=== PATIENT | female | born 1980 | race Caucasian/White ===

== ENCOUNTER 2016-12-13 13:26 | Emergency (ER) | END 2016-12-13 14:20 | disposition left against medical advice (07) | LOC: ER 13:26 | DX: Z53.21 Procedure and treatment not carried out due to patient leaving prior to being seen by health care provider (principal) ==

== ENCOUNTER 2017-08-02 11:12 | Emergency (ER) | payer MEDICARE, MEDICAID ==
--- NOTE | 2017-08-02 12:40 | ER Document Report ---
ED General - General Chief Complaint: Numbness Stated Complaint: WEAKNESS Time Seen by Provider: 08/02/17 12:25 Mode of Arrival: Ambulatory Information source: Patient Notes: 37-year-old female presents with complaints of intermittent episodes of feeling lightheaded over the past week. Patient notes that she feels like her blood sugar was dropping, felt clammy. denies any fevers or chills. TRAVEL OUTSIDE OF THE [place] IN LAST 30 DAYS: No - HPI Onset: Last week Onset/Duration: Intermittent Quality of pain: No pain Severity: Mild Pain Level: Denies Associated symptoms: Weakness, Other - clammy Exacerbated by: Denies Relieved by: Food Similar symptoms previously: Yes Recently seen / treated by doctor: No Past Medical History - Social History Smoking Status: Never Smoker Cigarette use (# per day): No Chew tobacco use (# tins/day): No Smoking Education Provided: No Family History: Reviewed & Not Pertinent Patient has suicidal ideation: No Renal/ Medical History: Denies: Hx Peritoneal Dialysis Review of Systems - Review of Systems Notes: REVIEW OF SYSTEMS: CONSTITUTIONAL : Denies fever, chills, or sweats. Denies recent illness. clammy EENT: Denies eye, ear, throat, or mouth pain or symptoms. Denies nasal or sinus congestion or discharge. Denies throat, tongue, or mouth swelling or difficulty swallowing. CARDIOVASCULAR: Denies chest pain. Denies palpitations or racing or irregular heart beat. Denies ankle edema. RESPIRATORY: Denies cough, cold, or chest congestion. Denies shortness of breath, difficulty breathing, or wheezing. GASTROINTESTINAL: Denies abdominal pain or distention. Denies nausea, vomiting , or diarrhea. Denies blood in vomitus, stools, or per rectum. Denies black, tarry stools. Denies constipation. GENITOURINARY: Denies difficulty urinating, painful urination, burning, frequency, blood in urine, or discharge. FEMALE GENITOURINARY: Denies vaginal bleeding, heavy or abnormal periods, irregular periods. Denies vaginal discharge or odor. MUSCULOSKELETAL: Denies back or neck pain or stiffness. Denies joint pain or swelling. SKIN: Denies rash, lesions or sores. HEMATOLOGIC : Denies easy bruising or bleeding. LYMPHATIC: Denies swollen, enlarged glands. NEUROLOGICAL: admits to dizziness, tunnel vision, PSYCHIATRIC: Denies anxiety or stress. Denies depression, suicidal ideation, or homicidal ideation. ALL OTHER SYSTEMS REVIEWED AND NEGATIVE. PHYSICAL EXAMINATION: GENERAL: Well-appearing, well-nourished and in no acute distress. HEAD: Atraumatic, normocephalic. EYES: Pupils equal round and reactive to light, extraocular movements intact, conjunctiva are normal. ENT: Nares patent, oropharynx clear without exudates. Moist mucous membranes. NECK: Normal range of motion, supple without lymphadenopathy LUNGS: Breath sounds clear to auscultation bilaterally and equal. No wheezes rales or rhonchi. HEART: Regular rate and rhythm without murmurs ABDOMEN: Soft, nontender, nondistended abdomen. No guarding, no rebound. No masses appreciated. Female : deferred Musculoskeletal: Normal range of motion, no pitting or edema. No cyanosis. NEUROLOGICAL: Cranial nerves grossly intact. Normal speech, normal gait. Normal sensory, motor exams PSYCH: Normal mood, normal affect. SKIN: Warm, Dry, normal turgor, no rashes or lesions noted. Dictation was performed using [employer] voice recognition software Physical Exam - Vital signs Vitals: Temp Pulse Resp BP Pulse Ox 97.9 F 74 18 139/98 H 97 08/02/17 11:14 08/02/17 11:14 08/02/17 11:14 08/02/17 11:14 08/02/17 11:14 Course - Re-evaluation Re-evalutation: 08/02/17 13:42 Patient lab work notes no significant abnormality, patient did eat and her symptoms resolved afterwards and her blood sugars 87, believe this may have been the cause of her symptoms otherwise she looks well is in no distress and has been encouraged to eat at least a little bit at a time After performing a Medical Screening Examination, I estimate there is LOW risk for INTRACRANIAL HEMORRHAGE, ISCHEMIC CVA, MALIGNANT DYSRHYTHMIA, ACUTE CORONARY SYNDROME, MENINGITIS, PULMONARY EMBOLISM, or SEPSIS thus I consider the discharge disposition reasonable. I have reevaluated this patient multiple times and no significant life threatening changes are noted. The patient and I have discussed the diagnosis and risks, and we agree with discharging home with close follow-up with the understanding that symptoms and presentations can change. We also discussed returning to the Emergency Department immediately if new or worsening symptoms occur. We have discussed the symptoms which are most concerning (e.g., changing or worsening pain, weakness, vomiting, fever) that necessitate immediate return. - Vital Signs Vital signs: Temp Pulse Resp BP Pulse Ox 97.9 F 74 18 139/98 H 97 08/02/17 11:14 08/02/17 11:14 08/02/17 11:14 08/02/17 11:14 08/02/17 11:14 - Laboratory Result Diagrams: 08/02/17 12:55 08/02/17 12:55 Discharge - Discharge Clinical Impression: Hypoglycemia, Weakness Condition: Stable Disposition: HOME, SELF-CARE Instructions: Hypoglycemia ([facility]) Additional Instructions: Follow up with your physician tomorrow for further care or return to the ED IMMEDIATELY if symptoms worsen or new concerns occur. If you cannot afford to follow up with your primary care physician a list of low cost clinics have been provided at the end of your discharge papers as well.
[2017-08-02 13:08] LABS: ABSOLUTE BASOPHILS # (AUTO) 0.1 10^3/uL (0.0-0.2); ABSOLUTE EOSINOPHILS # (AUTO) 0.2 10^3/uL (0.0-0.6); ABSOLUTE LYMPHOCYTES (AUTO) 2.4 10^3/uL (0.5-4.7); ABSOLUTE MONOCYTES (AUTO) 0.6 10^3/uL (0.1-1.4); EOSINOPHILS % (AUTO) 1.8 % (0-6); HEMATOCRIT 41.3 % (36.0-47.0); HEMOGLOBIN 14.3 g/dL (12.0-15.5); HGB HCT DIFFERENCE 1.6; MEAN CORPUSCULAR HEMOGLOBIN 30.5 pg (27.0-33.4); MEAN CORPUSCULAR HGB CONC 34.5 g/dL (32.0-36.0); MEAN CORPUSCULAR VOLUME 88 fl (80-97); MONOCYTES % (AUTO) 6.2 % (3-13); RED BLOOD COUNT 4.67 10^6/uL (3.72-5.28); RED CELL DISTRIBUTION WIDTH 12.5 % (11.5-14.0); WHITE BLOOD COUNT 10.3 10^3/uL (4.0-10.5)
[2017-08-02 13:25] LABS: ALANINE AMINOTRANSFERASE 35 U/L (9-52); ALBUMIN 4.4 g/dL (3.5-5.0); ALKALINE PHOSPHATASE 96 U/L (38-126); ANION GAP 10 (5-19); ASPARTATE AMINO TRANSFERASE 18 U/L (14-36); BILIRUBIN,DIRECT 0.3 mg/dL (0.0-0.4); BILIRUBIN,TOTAL 0.4 mg/dL (0.2-1.3); BLOOD UREA NITROGEN 8 mg/dL (7-20); CARBON DIOXIDE 27 mmol/L (22-30); CHLORIDE 105 mmol/L (98-107); CREATININE RESULT 0.66 mg/dL (0.52-1.25); GLUCOSE 87 mg/dL (75-110); POTASSIUM 4.7 mmol/L (3.6-5.0); SODIUM 141.6 mmol/L (137-145); TOTAL PROTEIN 7.2 g/dL (6.3-8.2)
[2017-08-02 13:58] VITALS: BP 140/94
== END 2017-08-02 13:38 | disposition home or self-care (01) ==
LOC: ER 11:12
DX: E16.2 Hypoglycemia, unspecified (principal); R53.1 Weakness; R42 Dizziness and giddiness
CPT/HCPCS: 36415; 80053; 85025; 99284

== ENCOUNTER → 2017-08-12 | Outpatient (CLI) | payer MEDICARE, MEDICAID ==
--- NOTE | 2017-08-12 14:51 | RADIOLOGY REPORT (SQ) ---
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 NUMBER OF VIEWS: Three views. TECHNIQUE: AP, lateral, and oblique radiographic images acquired of the left ankle. LIMITATIONS: None. FINDINGS: MINERALIZATION: Normal. BONES: No acute fracture or dislocation. No worrisome bone lesions. JOINTS: No effusions. SOFT TISSUES: No soft tissue swelling. No foreign body. OTHER: No other significant finding. IMPRESSION: NEGATIVE STUDY OF THE LEFT ANKLE. NO RADIOGRAPHIC EVIDENCE OF ACUTE INJURY. TECHNICAL DOCUMENTATION: JOB ID: [id number] [employer]- All Rights Reserved
--- NOTE | 2017-08-12 14:52 | RADIOLOGY REPORT (SQ) ---
EXAM DESCRIPTION: FOOT LEFT COMPLETE COMPLETED DATE/TIME: 08/12/2017 2:29 pm REASON FOR STUDY: PLANTAR FASCIAL FIBROMATOSIS,PAIN IN LEFT FOOT M72.2 PLANTAR FASCIAL FIBROMATOSIS M79.672 PAIN IN LEFT FOOT COMPARISON: None. NUMBER OF VIEWS: Three views. TECHNIQUE: AP, lateral and oblique radiographic images acquired of the left foot. LIMITATIONS: None. FINDINGS: MINERALIZATION: Normal. BONES: No acute fracture or dislocation. No worrisome bone lesions. JOINTS: No effusions. SOFT TISSUES: No soft tissue swelling. No foreign body. OTHER: No other significant finding. IMPRESSION: NEGATIVE STUDY OF THE LEFT FOOT. NO RADIOGRAPHIC EVIDENCE OF ACUTE INJURY. TECHNICAL DOCUMENTATION: JOB ID: [id number] [employer]- All Rights Reserved
== END ==
LOC: OD 14:04
PROVIDERS: ATTEND Family Medicine Geriatric Medicine
DX: M72.2 Plantar fascial fibromatosis (principal); M79.672 Pain in left foot

== ENCOUNTER → 2017-09-28 | Outpatient (CLI) | payer MEDICARE, MEDICAID ==
--- NOTE | 2017-09-28 17:44 | WOMENS IMAGING REPORT ---
EXAM DESCRIPTION: 3D SCREENING MAMMO BILAT COMPLETED DATE/TIME: 09/28/2017 3:42 pm REASON FOR STUDY: ROUTINE SCREENING; Z12.31 Z12.31 ENCNTR SCREEN MAMMOGRAM FOR MALIGNANT NEOPLASM O F RISSA COMPARISON: None. TECHNIQUE: Standard craniocaudal and mediolateral oblique views of each breast recorded using digita l acquisition and breast tomosynthesis. Additional "push-back craniocaudal and mediolateral oblique images acquired. LIMITATIONS: None. FINDINGS: IMPLANTS: Bilateral subpectoral implants. Findings present which are benign by mammographic criteria. No suspicious masses, calcifications or a rchitectural distortion. Read with the assistance of CAD. .[facility] - R2 Cenova Version 1.3 .[facility] - R2 Cenova Version 1.3 .[facility] - R2 Cenova Version 2.4 .[facility] - R2 Cenova Version 2.4 .[facility] - R2 Driver License Examiner Version 9.2 Benign mammographic findings may include one or more of the following: Smooth masses, popcorn/rim/co arse calcifications, asymmetries, post-procedure changes, and lesions with long-standing stability. IMPRESSION: BENIGN MAMMOGRAPHIC FINDINGS. BIRADS 2 BREAST DENSITY: c. The breasts are heterogeneously dense, which may obscure small masses. BIRAD: 2 BENIGN FINDING(S) RECOMMENDATION: ROUTINE SCREENING Please continue yearly bilateral screening tomosynthesis in September 2018. COMMENT: The patient has been notified of the results by letter per SA requirements. Additional no tification policies are in place for contacting patient with suspicious or incomplete findings. Quality ID #[id number]: The [employer] recommends an annual screening mammogram for women aged 40 years or over. This facility utilizes a reminder system to ensure that all patients receive reminder letters, and/or direct phone calls for appointments. This includes reminders for routine scr eening mammograms, diagnostic mammograms, or other Breast Imaging Interventions when appropriate. Th is patient will be placed in the appropriate reminder system. The [employer] (ACR) has developed recommendations for screening MRI of the breast s in certain patient populations, to be used in conjunction with mammography. Breast MRI surveillanc e may be appropriate for women with more than 20% lifetime risk of developing breast cancer as deter mined by genetic testing, significant family history of the disease, or history of mantle radiation f or Hodgkins Disease. ACR Practice Guidelines 2008. DBT Technology DBT is a type of tomographic mammography. With conventional mammography, overlapping breast tissue ma y make lesions difficult to detect, even with good compression. DBT uses an x-ray tube that rotates a round the breast, taking images at different angles. These images are then combined to create thin sl ices of the breast that the radiologist can view as a 3D reconstruction. The [place] [employer] unit can perform full-field digital mammograms (2D imaging); or DBT (3D imaging); or both, in a combination mode that quickly performs both the mammogram and the tomosynthesis scan while the breast is still compressed. PQRS 6045F: Fluoroscopic imaging is not utilized for breast tomosynthesis. TECHNICAL DOCUMENTATION: FINDING NUMBER: (1) ASSESSMENT: (1) JOB ID: [id number] [employer]- All Rights Reserved
== END ==
LOC: WI 15:07
PROVIDERS: ATTEND Obstetrics & Gynecology Gynecology
DX: Z12.31 Encounter for screening mammogram for malignant neoplasm of breast (principal)
CPT/HCPCS: 77063; G0202; 77067

== ENCOUNTER 2017-10-25 16:39 | Emergency (ER) | payer MEDICARE, MEDICAID ==
[2017-10-25] MEDS ORDERED: DIAZEPAM 5 MG TABLET PO ONE (17:15)
[2017-10-25 17:49] VITALS: BP 129/100
--- NOTE | 2017-10-25 17:51 | ER Document Report ---
ED General - General Chief Complaint: Breathing Difficulty Stated Complaint: LIGHTHEADED,SHORT OF BREATH Time Seen by Provider: 10/25/17 17:15 Mode of Arrival: Ambulatory Information source: Patient Notes: 37 yr old female hx of anxiety panic attacks persents with complaints of feeling that she is drowning, tinging in her hands and lips, hyperventilating and shaking. pt notes 1 similar panic attack i nthe past TRAVEL OUTSIDE OF THE [place] IN LAST 30 DAYS: No - HPI Onset: Just prior to arrival Onset/Duration: Sudden Quality of pain: No pain Severity: Moderate Pain Level: Denies Associated symptoms: Other Exacerbated by: Denies Relieved by: Denies Similar symptoms previously: Yes Recently seen / treated by doctor: Yes - Related Data Allergies/Adverse Reactions: bupropion [From Wellbutrin] Allergy (Verified 10/25/17 16:43) Past Medical History - Social History Smoking Status: Current Every Day Smoker Cigarette use (# per day): Yes Chew tobacco use (# tins/day): No Smoking Education Provided: No Frequency of alcohol use: None Drug Abuse: None Family History: Reviewed & Not Pertinent Patient has suicidal ideation: No Patient has homicidal ideation: No Renal/ Medical History: Denies: Hx Peritoneal Dialysis Review of Systems - Review of Systems Notes: REVIEW OF SYSTEMS: CONSTITUTIONAL : Denies fever, chills, or sweats. Denies recent illness. EENT: Denies eye, ear, throat, or mouth pain or symptoms. Denies nasal or sinus congestion or discharge. Denies throat, tongue, or mouth swelling or difficulty swallowing. CARDIOVASCULAR: Denies chest pain. Denies palpitations or racing or irregular heart beat. Denies ankle edema. RESPIRATORY: Admits to shortness of breath like she is drowning GASTROINTESTINAL: Denies abdominal pain or distention. Denies nausea, vomiting , or diarrhea. Denies blood in vomitus, stools, or per rectum. Denies black, tarry stools. Denies constipation. GENITOURINARY: Denies difficulty urinating, painful urination, burning, frequency, blood in urine, or discharge. FEMALE GENITOURINARY: Denies vaginal bleeding, heavy or abnormal periods, irregular periods. Denies vaginal discharge or odor. MUSCULOSKELETAL: Denies back or neck pain or stiffness. Denies joint pain or swelling. SKIN: Denies rash, lesions or sores. HEMATOLOGIC : Denies easy bruising or bleeding. LYMPHATIC: Denies swollen, enlarged glands. NEUROLOGICAL: Admits tingling PSYCHIATRIC: Admits to stress ALL OTHER SYSTEMS REVIEWED AND NEGATIVE. PHYSICAL EXAMINATION: GENERAL: Well-appearing, well-nourished and in no acute distress. HEAD: Atraumatic, normocephalic. EYES: Pupils equal round and reactive to light, extraocular movements intact, conjunctiva are normal. ENT: Nares patent, oropharynx clear without exudates. Moist mucous membranes. NECK: Normal range of motion, supple without lymphadenopathy LUNGS: Breath sounds clear to auscultation bilaterally and equal. No wheezes rales or rhonchi. HEART: Regular rate and rhythm without murmurs ABDOMEN: Soft, nontender, nondistended abdomen. No guarding, no rebound. No masses appreciated. Female : deferred Musculoskeletal: Normal range of motion, no pitting or edema. No cyanosis. NEUROLOGICAL: Cranial nerves grossly intact. Normal speech, normal gait. Normal sensory, motor exams PSYCH: Extremely anxious SKIN: Warm, Dry, normal turgor, no rashes or lesions noted. Dictation was performed using [employer] voice recognition software Physical Exam - Vital signs Vitals: Temp Pulse Resp BP Pulse Ox 98.5 F 71 16 138/101 H 100 10/25/17 16:51 10/25/17 16:51 10/25/17 16:51 10/25/17 16:51 10/25/17 16:51 Course - Re-evaluation Re-evalutation: Patient's presentation is consistent with a panic attack 10/25/17 17:50 Patient notes significant improvement of sensation with Valium, she no longer has any shortness of breath tingling sensations or shakiness. She wishes to be discharged at this time 10/25/17 18:37 After performing a Medical Screening Examination, I estimate there is LOW risk for ACUTE CORONARY SYNDROME, PULMONARY EMBOLI, RESPIRATORY FAILURE, SEPSIS OR MENINGITIS, thus I consider the discharge disposition reasonable. I have reevaluated this patient multiple times and no significant life threatening changes are noted. The patient and I have discussed the diagnosis and risks, and we agree with discharging home with close follow-up. We also discussed returning to the Emergency Department immediately if new or worsening symptoms occur. We have discussed the symptoms which are most concerning (e.g., changing or worsening pain, trouble swallowing or breathing, neck stiffness, fever) that necessitate immediate return. - Vital Signs Vital signs: Temp Pulse Resp BP Pulse Ox 98.5 F 66 18 129/100 H 98 10/25/17 16:51 10/25/17 17:48 10/25/17 17:49 10/25/17 17:48 10/25/17 17:48 Discharge - Discharge Clinical Impression: Panic attack as reaction to stress Condition: Stable Disposition: HOME, SELF-CARE Instructions: Panic Attack ([facility]) Additional Instructions: Please follow-up with your psychiatrist or return immediately if there are any other concerns Referrals: ORA BHANDARI FNP [Primary Care Provider] - Follow up as needed
== END 2017-10-25 17:55 | disposition home or self-care (01) ==
LOC: ER 16:39
DX: F41.0 Panic disorder [episodic paroxysmal anxiety] (principal); R06.00 Dyspnea, unspecified; F17.210 Nicotine dependence, cigarettes, uncomplicated
CPT/HCPCS: 99284; A9270

== ENCOUNTER 2018-03-18 | Emergency (ER) | payer MEDICARE, OTHER, MEDICAID | END 2018-03-18 14:12 | disposition left against medical advice (07) | DX: Z53.21 Procedure and treatment not carried out due to patient leaving prior to being seen by health care provider (principal) ==

== ENCOUNTER 2018-03-19 10:32 | Emergency (ER) | payer MEDICARE, MEDICAID ==
[2018-03-19] MEDS ORDERED: ASPIRIN 81 MG TABLET, CHEWABLE PO ONE (11:06)
--- NOTE | 2018-03-19 11:10 | ER Document Report ---
ED Medical Screen (RME) - General Chief Complaint: Chest Tightness Stated Complaint: CHEST TIGHTNESS,BLURRED VISION Time Seen by Provider: 03/19/18 10:54 Notes: 38-year-old female presents emergency department complaining of chest pain and shortness of breath starting about an hour ago associated with left arm tingling starting 2 weeks ago. Patient admits she has a history of anxiety attacks but states this does not feel at all same. Previously she felt like she could not get a deep breath and today she feels like somebody standing on her chest. Patient also states that yesterday she was seen in urgent care for history of intermittent blurred vision, intermittent vertigo described as the world spinning around her and intermittent dizziness going on for the past several days up to 2 weeks. States that yesterday she was told to come to the emergency department to have a CAT scan done. Denies any focal weakness. Significant family history includes grandmother and grandfather with a heart attack. No heart attacks in first-degree relatives. TRAVEL OUTSIDE OF THE [place] IN LAST 30 DAYS: No - Related Data Allergies/Adverse Reactions: bupropion [From Wellbutrin] Allergy (Verified 03/19/18 11:02) Past Medical History - General Information source: Patient - Social History Cigarette use (# per day): Yes Chew tobacco use (# tins/day): No Frequency of alcohol use: None Drug Abuse: None Family history: CAD - Paternal grandmother and maternal grandfather with heart attacks. Renal/ Medical History: Denies: Hx Peritoneal Dialysis Psychiatric Medical History: Reports: Hx Depression - ANxiety Review of Systems - Review of Systems Constitutional: No symptoms reported Cardiovascular: See HPI Respiratory: See HPI Neurological/Psychological: See HPI Physical Exam - Vital signs Vitals: Temp Pulse Resp BP Pulse Ox 98.4 F 86 20 130/91 H 100 03/19/18 10:45 03/19/18 10:45 03/19/18 10:45 03/19/18 10:45 03/19/18 10:45 Interpretation: Tachycardic - General General appearance: Anxious In distress: Mild - HEENT Head: Normocephalic, Atraumatic - Respiratory Respiratory status: No respiratory distress Chest status: Nontender Breath sounds: Normal Chest palpation: Normal - Cardiovascular Rhythm: Tachycardia Heart sounds: Normal auscultation Murmur: No - Neurological Notes: No facial droop., Extraocular movements intact. Course - Re-evaluation Re-evalutation: 03/19/18 11:09 Doubt cerebellar stroke at this time as her symptoms intermittently resolved and return. Will hold off on CAT scan at this time. Patient agreeable to this plan. - Vital Signs Vital signs: Temp Pulse Resp BP Pulse Ox 98.4 F 86 20 130/91 H 100 03/19/18 10:45 03/19/18 10:45 03/19/18 10:45 03/19/18 10:45 03/19/18 10:45
--- NOTE | 2018-03-19 11:26 | ER Document Report ---
ED General <GEORGIA NOVAK - Last Filed: 03/19/18 13:38> - General Mode of Arrival: Ambulatory Information source: Patient TRAVEL OUTSIDE OF THE [place] IN LAST 30 DAYS: No <MABEL LOZA - Last Filed: 03/19/18 14:23> - General Chief Complaint: Chest Tightness Stated Complaint: CHEST TIGHTNESS,BLURRED VISION Time Seen by Provider: 03/19/18 10:54 Notes: Patient is a 38 year old female that presents to the emergency department today with complaints of vertigo, lightheadedness, and blurred vision. Patient states she has been having these symptoms for quite some time. Patient states that when her symptoms begin they last for approximately 5-10 minutes and she is unsure how often they stay gone. Patient is a poor historian so history is somewhat limited. (MABEL LOZA) - Related Data Allergies/Adverse Reactions: bupropion [From Wellbutrin] Allergy (Verified 03/19/18 11:02) Past Medical History - General Information source: Patient - Social History Smoking Status: Current Every Day Smoker Cigarette use (# per day): Yes Chew tobacco use (# tins/day): No Frequency of alcohol use: None Drug Abuse: None Lives with: Family Family History: Reviewed & Not Pertinent Patient has suicidal ideation: No Patient has homicidal ideation: No Psychiatric Medical History: Reports: Hx Anxiety, Hx Depression Surgical Hx: Negative <MABEL LOZA - Last Filed: 03/19/18 14:23> Review of Systems - Review of Systems Constitutional: No symptoms reported EENT: No symptoms reported Cardiovascular: See HPI, Chest pain, Dizziness, Lightheaded Respiratory: No symptoms reported Gastrointestinal: No symptoms reported Genitourinary: No symptoms reported Female Genitourinary: No symptoms reported Musculoskeletal: No symptoms reported Skin: No symptoms reported Hematologic/Lymphatic: No symptoms reported Neurological/Psychological: No symptoms reported -: Yes All other systems reviewed and negative <MABEL LOZA - Last Filed: 03/19/18 14:23> Physical Exam <GEORGIA NOVAK - Last Filed: 03/19/18 13:38> <MABEL LOZA - Last Filed: 03/19/18 14:23> - Vital signs Vitals: Temp Pulse Resp BP Pulse Ox 98.4 F 86 20 130/91 H 100 03/19/18 10:45 03/19/18 10:45 03/19/18 10:45 03/19/18 10:45 03/19/18 10:45 - Notes Notes: Physical Exam: General: Alert, appears well. HEENT: Normocephalic. Atraumatic. PERRL. Extraocular movements intact. Oropharynx clear. Rapid head movement did not provoke nystagmus or dizziness. Neck: Supple. Non-tender. Respiratory: No respiratory distress. Clear and equal breath sounds bilaterally. Mild left anterior chest wall tenderness with palpation. Cardiovascular: Regular rate and rhythm. Abdominal: Normal Inspection. Non-tender. No distension. Normal Bowel Sounds. Back: Left medial scapular musculature tenderness with palpation. No deformity or step off. Extremities: Moves all four extremities. Upper extremities: Normal inspection. Normal ROM. Lower extremities: Normal inspection. No edema. Normal ROM. Neurological: Normal cognition. AAOx4. Normal speech. Psychological: Anxious Skin: Warm. Dry. Normal color. (MABEL LOZA) Course - Laboratory Result Diagrams: 03/19/18 11:30 03/19/18 11:30 - Diagnostic Test Radiology reviewed: Image reviewed, Reports reviewed - Chest x-ray is unremarkable - EKG Interpretation by Nd EKG shows normal: Sinus rhythm, [place], Intervals, ST-T Waves. abnormal: QRS Complexes - Lateral Q waves similar to an EKG done at the urgent care yesterday. Rate: Normal - 98 Rhythm: NSR <GEORGIA NOVAK - Last Filed: 03/19/18 13:38> - Laboratory Result Diagrams: 03/19/18 11:30 03/19/18 11:30 <MABEL LOZA - Last Filed: 03/19/18 14:23> - Re-evaluation Re-evalutation: 03/19/18 13:38 The sling was applied to the left arm by the PCT. It fits well, provides good support and allows the patient to relax her left shoulder girdle muscles. (GEORGIA NOVAK) - Vital Signs Vital signs: Temp Pulse Resp BP Pulse Ox 98.4 F 86 16 118/81 98 03/19/18 12:58 03/19/18 10:45 03/19/18 12:52 03/19/18 12:52 03/19/18 12:52 - Laboratory Laboratory results interpreted by me: 03/19/18 03/19/18 11:30 11:30 ESR 23 H C-Reactive Protein 12.2 H Discharge <GEORGIA NOVAK - Last Filed: 03/19/18 13:38> <MABEL LOZA - Last Filed: 03/19/18 14:23> - Discharge Clinical Impression: Light-headed feeling, Dizziness, Vertigo, Blurred vision, bilateral, Pain of left scapula Chest pain Qualifiers: Chest pain type: unspecified Qualified Code(s): R07.9 - Chest pain, unspecified Condition: Stable Disposition: HOME, SELF-CARE Additional Instructions: No abnormalities were found in your workup today. No clear explanation for your symptoms of brief episodes of vertigo and blurry vision was discovered. Your left scapular muscle tenderness will probably improve if you try wearing a sling on her left arm to allow the muscles to relax. Get plenty of rest and plenty of sleep. Continue your regular medications. Take Tylenol and ibuprofen for pain as needed. Use the sling on your left arm to allow the muscles in the shoulder girdle region to rest. Follow-up with your primary care provider if not improving next week. Referrals: ANT HINTON NP [Primary Care Provider] - Follow up as needed Scribe Attestation: 03/19/18 11:27 I personally performed the services described in the documentation, reviewed and edited the documentation which was dictated to the scribe in my presence, and it accurately records my words and actions. (GEORGIA NOVAK) Scribe Documentation - Scribe Written by Isai:: Isai Becerra, 03/19/2018, 1423 acting as scribe for :: Hung <MABEL LOZA - Last Filed: 03/19/18 14:23>
[2018-03-19 11:53] LABS: ABSOLUTE EOSINOPHILS # (AUTO) 0.1 10^3/uL (0.0-0.6); ABSOLUTE LYMPHOCYTES (AUTO) 1.9 10^3/uL (0.5-4.7); ABSOLUTE MONOCYTES (AUTO) 0.6 10^3/uL (0.1-1.4); ABSOLUTE NEUT (AUTO) 6.4 10^3/uL (1.7-8.2); BASOPHILS % (AUTO) 0.4 % (0-2); EOSINOPHILS % (AUTO) 1.6 % (0-6); HEMATOCRIT 41.7 % (36.0-47.0); HEMOGLOBIN 14.1 g/dL (12.0-15.5); LYMPHOCYTES % (AUTO) 20.8 % (13-45); MEAN CORPUSCULAR HEMOGLOBIN 30.1 pg (27.0-33.4); MEAN CORPUSCULAR HGB CONC 33.9 g/dL (32.0-36.0); MEAN CORPUSCULAR VOLUME 89 fl (80-97); MONOCYTES % (AUTO) 6.1 % (3-13); PLATELET COUNT 302 10^3/uL (150-450); RED BLOOD COUNT 4.69 10^6/uL (3.72-5.28); SEGMENTED NEUTROPHILS % (AUTO) 71.1 % (42-78); TOTAL CELLS COUNTED % (AUTO) 100 %
--- NOTE | 2018-03-19 11:58 | RADIOLOGY REPORT (SQ) ---
EXAM DESCRIPTION: CHEST SINGLE VIEW COMPLETED DATE/TIME: 03/19/2018 11:49 am REASON FOR STUDY: chest pain, SOB COMPARISON: None. EXAM PARAMETERS: NUMBER OF VIEWS: One view. TECHNIQUE: Single frontal radiographic view of the chest acquired. RADIATION DOSE: NA LIMITATIONS: None. FINDINGS: LUNGS AND PLEURA: No opacities, masses or pneumothorax. No pleural effusion. MEDIASTINUM AND HILAR STRUCTURES: No masses. Contour normal. HEART AND VASCULAR STRUCTURES: Heart normal in size. Normal vasculature. BONES: No acute findings. HARDWARE: None in the chest. OTHER: No other significant finding. IMPRESSION: NO ACUTE RADIOGRAPHIC FINDING IN THE CHEST. TECHNICAL DOCUMENTATION: JOB ID: [id number] [employer]- All Rights Reserved Reading location - IP/workstation name: [email or web address]
[2018-03-19 12:12] LABS: ALANINE AMINOTRANSFERASE 30 U/L (9-52); ALBUMIN 4.5 g/dL (3.5-5.0); ALKALINE PHOSPHATASE 102 U/L (38-126); ANION GAP 12 (5-19); ASPARTATE AMINO TRANSFERASE 20 U/L (14-36); BILIRUBIN,DIRECT 0.2 mg/dL (0.0-0.4); BILIRUBIN,TOTAL 0.2 mg/dL (0.2-1.3); BLOOD UREA NITROGEN 13 mg/dL (7-20); C-REACTIVE PROTEIN 12.2 mg/L (<10.0); CALCIUM 9.8 mg/dL (8.4-10.2); CARBON DIOXIDE 23 mmol/L (22-30); CHLORIDE 107 mmol/L (98-107); CREATINE KINASE 38 U/L (30-135); GLUCOSE 88 mg/dL (75-110); LIPASE 105.1 U/L (23-300); POTASSIUM 4.4 mmol/L (3.6-5.0); SODIUM 142.3 mmol/L (137-145); TOTAL PROTEIN 7.2 g/dL (6.3-8.2)
[2018-03-19 12:22] LABS: CREATINE KINASE MB < 0.22 ng/mL (<4.55); TROPONIN I < 0.012 ng/mL
[2018-03-19 12:30] LABS: ERYTHROCYTE SEDIMENTATION RATE 23 mm/hr (0-20)
[2018-03-19 12:54] VITALS: BP 118/81
--- NOTE | 2018-03-19 21:06 | EKG REPORT ---
SEVERITY:- OTHERWISE NORMAL ECG - SINUS RHYTHM LATERAL Q WAVES, PROBABLY NORMAL VARIATION : Confirmed by: Lamar Razo 19-Mar-2018 18:05:16
== END 2018-03-19 13:10 | disposition home or self-care (01) ==
LOC: ER 10:32
DX: R42 Dizziness and giddiness (principal); F41.9 Anxiety disorder, unspecified; R07.89 Other chest pain; M89.8X1 Other specified disorders of bone, shoulder; H53.8 Other visual disturbances; F17.210 Nicotine dependence, cigarettes, uncomplicated; Z88.8 Allergy status to other drugs, medicaments and biological substances
CPT/HCPCS: 93005; 99284; 36415; 82553; 82550; 83690; 85025; 85652; 86140; 80053; 84484; 85379; 71045; 93010; A9270

== ENCOUNTER 2018-07-07 13:11 | Emergency (ER) | payer MEDICARE, MEDICAID | END 2018-07-07 14:25 | disposition left against medical advice (07) | LOC: ER 13:11 | DX: R42 Dizziness and giddiness (principal); R11.0 Nausea; Z53.21 Procedure and treatment not carried out due to patient leaving prior to being seen by health care provider ==

== ENCOUNTER 2019-02-13 13:43 | Emergency (ER) | payer MEDICARE, MEDICAID ==
--- NOTE | 2019-02-13 15:12 | ER Document Report ---
ED Medical Screen (RME) - General Chief Complaint: Swallowed Foreign Body Stated Complaint: FOREIGN OBJECT IN THROAT Time Seen by Provider: 02/13/19 15:10 Primary Care Provider: ANT HINTON NP [COMMUNITY BASED STAFF] - Follow up in 3-5 days Mode of Arrival: Ambulatory Information source: Patient Notes: 39-year-old female presented to ED for feeling like there is food stuck in her throat. She states that the food went down wrong yesterday and she coughed a cough to coughed and then threw up some blood. She states she has not vomited since last night. She states that she did not started burping this morning and now it feels like the food is come back up in her throat. She has not vomited again today. Patient is alert oriented respirations regular and unlabored speaking in full sentences walks with a even steady gait. TRAVEL OUTSIDE OF THE [place] IN LAST 30 DAYS: No - HPI Onset: Yesterday Onset/Duration: Intermittent Quality of pain: Burning - epigastric Associated Symptoms: Vomiting, Other - Burping after food went down the wrong pipe yesterday. She states she coughed and coughed until she threw up last ni ght and threw some blood up at that time. She states she has not vomited since then. Relieved by: Other - States soda we relieved the pain yesterday and then she burped and felt like she had a food in the throat again today Similar symptoms previously: Yes Recently seen / treated by doctor: No - Related Data Allergies/Adverse Reactions: bupropion [From Wellbutrin] Allergy (Verified 02/13/19 13:46) Past Medical History - General Information source: Patient - Social History Cigarette use (# per day): No Frequency of alcohol use: None Drug Abuse: None Lives with: Parents Family history: CAD - Paternal grandmother and maternal grandfather with heart attacks. - Past Medical History Cardiac Medical History: Reports: None Pulmonary Medical History: Reports: None EENT Medical History: Reports: None Neurological Medical History: Reports: None Endocrine Medical History: Reports: Other - Hypoglycemia Renal/ Medical History: Reports: None Malignancy Medical History: Reports: None GI Medical History: Reports: Hx Gastroesophageal Reflux Disease Musculoskeltal Medical History: Reports None Skin Medical History: Reports None Psychiatric Medical History: Reports: Hx Anxiety, Hx Attention Deficit Hyperactivity Disorder, Hx Borderline Personality Disorder, Hx Depression, Other - Agouraphobia Review of Systems - Review of Systems Constitutional: No symptoms reported EENT: No symptoms reported Cardiovascular: No symptoms reported Respiratory: No symptoms reported Gastrointestinal: Vomiting Genitourinary: No symptoms reported Female Genitourinary: No symptoms reported Musculoskeletal: No symptoms reported Skin: No symptoms reported Hematologic/Lymphatic: No symptoms reported Neurological/Psychological: No symptoms reported -: Yes All other systems reviewed and negative Physical Exam - Vital signs Vitals: Temp Pulse Resp BP Pulse Ox 98.4 F 86 16 150/104 H 100 02/13/19 14:01 02/13/19 14:01 02/13/19 14:01 02/13/19 14:01 02/13/19 14:01 Interpretation: Normal - General General appearance: Appears well, Alert - HEENT Head: Normocephalic, Atraumatic Eyes: Normal Pupils: PERRL - Respiratory Respiratory status: No respiratory distress Chest status: Nontender Breath sounds: Normal Chest palpation: Normal - Cardiovascular Rhythm: Regular Heart sounds: Normal auscultation Murmur: No - Abdominal Inspection: Normal Distension: No distension Bowel sounds: Normal Tenderness: Nontender Organomegaly: No organomegaly - Back Back: Normal, Nontender - Extremities General upper extremity: Normal inspection, Nontender, Normal color, Normal ROM, Normal temperature General lower extremity: Normal inspection, Nontender, Normal color, Normal ROM, Normal temperature, Normal weight bearing. No: Fabian's sign - Neurological Neuro grossly intact: Yes Cognition: Normal Orientation: AAOx4 Dany Coma Scale Eye Opening: Spontaneous Dany Coma Scale Verbal: Oriented [place] Coma Scale Motor: Obeys Commands Dany Coma Scale Total: 15 Speech: Normal Motor strength normal: LUE, RUE, LLE, RLE Sensory: Normal - Psychological Associated symptoms: Normal affect, Normal mood - Skin Skin Temperature: Warm Skin Moisture: Dry Skin Color: Normal Course - Vital Signs Vital signs: Temp Pulse Resp BP Pulse Ox 98.2 F 80 17 133/83 H 99 02/13/19 17:44 02/13/19 17:44 02/13/19 17:44 02/13/19 16:47 02/13/19 17:44 - Laboratory Result Diagrams: 02/13/19 15:27 02/13/19 15:27 Doctor's Discharge - Discharge Clinical Impression: Choked on food causing to vomit GERD (gastroesophageal reflux disease) Qualifiers: Esophagitis presence: without esophagitis Qualified Code(s): K21.9 - Gastro-eso phageal reflux disease without esophagitis Condition: Stable Disposition: HOME, SELF-CARE Additional Instructions: Reflux Disease (GERD) Gastro-Esophageal Reflux Disease (GERD) is caused by stomach acid refluxing back up into the esophagus. The valve at the end of the esophagus may be weak. This is common in persons with a hiatal hernia. GERD symptoms can include indigestion, chest pain, heartburn, or food "sticking." Certain foods, alcohol, and aspirin can make GERD worse. Treatment depends on the severity. Usually, antacids or acid-suppressing medicines are used. When the esophagus is acutely inflamed, the physician will often prescribe membrane-protective drugs such as Carafate. Some patients benefit from medication such as Reglan that tightens the valve at the top of the stomach. Avoid those foods that bring on your symptoms. For many people, these foods are coffee, chocolate, onions, garlic, and carbonated drinks. Don't use alcohol, aspirin, caffeine, or tobacco. Don't eat late at night -- within 4 hours of bedtime. Don't over-eat. If necessary, elevate the head of your bed about 4 in ches so that stomach acid will not roll up into your esophagus. Call the doctor if you develop severe chest pain, inability to swallow fluids, fever, or worsening symptoms. Acid-Suppressing Medication You have a prescription for medicine which reduces the stomach's secretion of acid. Examples include Zantac, Tagament, and Pepcid. These drugs are often used to allow healing of ulcers or esophagitis. They may be needed to prevent recurrence of ulcers in some patients, or to prevent damage from acid reflux in the esophagus. Take all medication as prescribed, even after the pain is gone. Regular antacids may be added as needed if you have symptoms while taking this medicine. These medications sometimes are prescribed for allergic reactions because they have anti-histaminic effects and relieve the rash and itching of the reaction. There are usually no side effects from this medication. But, in rare cases and particularly in the elderly, serious problems can occur. Contact your doctor if there is fever, rash, hallucinations, confusion, or unusual bruising. Contact your doctor at once if you develop lightheadedness, black or bloody stool, or bloody vomitus. FOLLOW-UP CARE: If you have been referred to a physician for follow-up care, call the physicians office for an appointment as you were instructed or within the next two days. If you experience worsening or a significant change in your symptoms, notify the physician immediately or return to the Emergency Department at any time for re-evaluation. Forms: Elevated Blood Pressure, Return to Work Referrals: ANT HINTON NP [COMMUNITY BASED STAFF] - Follow up in 3-5 days
[2019-02-13 15:44] LABS: ABSOLUTE BASOPHILS # (AUTO) 0.1 10^3/uL (0.0-0.2); ABSOLUTE EOSINOPHILS # (AUTO) 0.1 10^3/uL (0.0-0.6); ABSOLUTE LYMPHOCYTES (AUTO) 1.8 10^3/uL (0.5-4.7); ABSOLUTE MONOCYTES (AUTO) 0.4 10^3/uL (0.1-1.4); ABSOLUTE NEUT (AUTO) 6.5 10^3/uL (1.7-8.2); BASOPHILS % (AUTO) 0.6 % (0-2); EOSINOPHILS % (AUTO) 0.8 % (0-6); HEMATOCRIT 43.1 % (36.0-47.0); HEMOGLOBIN 14.4 g/dL (12.0-15.5); LYMPHOCYTES % (AUTO) 20.2 % (13-45); MEAN CORPUSCULAR HEMOGLOBIN 29.9 pg (27.0-33.4); MEAN CORPUSCULAR HGB CONC 33.5 g/dL (32.0-36.0); MEAN CORPUSCULAR VOLUME 89 fl (80-97); PLATELET COUNT 302 10^3/uL (150-450); RED BLOOD COUNT 4.82 10^6/uL (3.72-5.28); RED CELL DISTRIBUTION WIDTH 12.4 % (11.5-14.0); SEGMENTED NEUTROPHILS % (AUTO) 73.4 % (42-78); TOTAL CELLS COUNTED % (AUTO) 100 %; WHITE BLOOD COUNT 8.9 10^3/uL (4.0-10.5)
[2019-02-13 16:51] VITALS: BP 133/83
[2019-02-13] MEDS ORDERED: FAMOTIDINE 20 MG TABLET PO ONE (17:05)
[2019-02-13 17:10] LABS: ALANINE AMINOTRANSFERASE 24 U/L (9-52); ALBUMIN 4.3 g/dL (3.5-5.0); ALKALINE PHOSPHATASE 80 U/L (38-126); ANION GAP 13 (5-19); ASPARTATE AMINO TRANSFERASE 16 U/L (14-36); BILIRUBIN,DIRECT 0.3 mg/dL (0.0-0.4); BILIRUBIN,TOTAL 0.4 mg/dL (0.2-1.3); BLOOD UREA NITROGEN 11 mg/dL (7-20); CALCIUM 10.1 mg/dL (8.4-10.2); CARBON DIOXIDE 24 mmol/L (22-30); CHLORIDE 103 mmol/L (98-107); GLUCOSE 104 mg/dL (75-110); POTASSIUM 4.4 mmol/L (3.6-5.0); SODIUM 140.1 mmol/L (137-145); TOTAL PROTEIN 7.8 g/dL (6.3-8.2)
== END 2019-02-13 17:45 | disposition home or self-care (01) ==
LOC: ER 13:43
DX: T17.928A Food in respiratory tract, part unspecified causing other injury, initial encounter (principal); K21.9 Gastro-esophageal reflux disease without esophagitis; R10.13 Epigastric pain; R11.10 Vomiting, unspecified; X58.XXXA Exposure to other specified factors, initial encounter
CPT/HCPCS: 99283; 36415; 84703; 85025; 80053; A9270

== ENCOUNTER 2019-05-23 21:26 | Emergency (ER) | payer MEDICAID, MEDICARE ==
--- NOTE | 2019-05-23 23:21 | EKG REPORT ---
SEVERITY:- ABNORMAL ECG - SINUS RHYTHM LVH : Confirmed by: Lamar Razo 23-May-2019 23:20:20
--- NOTE | 2019-05-24 02:14 | ER Document Report ---
Addendum entered and electronically signed by PIETER FRY PA 05/24/19 07:35: Course - Vital Signs Vital signs: Temp Pulse Resp BP Pulse Ox 98.1 F 70 26 H 126/75 H 99 05/24/19 02:20 05/24/19 02:20 05/23/19 22:06 05/24/19 02:20 05/24/19 02:20 - EKG Interpretation by Me Additional EKG results interpreted by me: EKG shows sinus rhythm at a rate of 86, QTC of 460, slight sinus irregularity but P waves are present, there is some artifact, there are no T wave inversions or ST segment changes in consecutive leads. Normal axis. Original Note: ED General - General Chief Complaint: Dizziness Stated Complaint: DIZZINESS, ANXIETY Time Seen by Provider: 05/24/19 01:52 Primary Care Provider: ORA BHANDARI FNP [NURSE PRACTITIONER] - Follow up as needed Notes: Patient is a 39-year-old female that comes emergency department for chief complaint of an episode of dizziness where she felt like the earth was tilting beneath her and she was going to "slide down it", she states that this triggered a panic attack and she started having shakiness, rapid heartbeat, and rapid breathing. She denies chest pain, passing out, she states symptoms have resolved now. Patient states she took meclizine at home before the symptoms. She states she is trying to wean herself off of her Klonopin. She only takes occasional 0.5 mg now instead of regular scheduled. She states that she was seen by neurology, had an MRI of the brain, she states that she was referred to another neurologist and this consult is pending. Patient states that she has had extensive work-up without any specific findings. TRAVEL OUTSIDE OF THE [place] IN LAST 30 DAYS: No - Related Data Allergies/Adverse Reactions: bupropion [From Wellbutrin] Allergy (Verified 02/13/19 13:46) Past Medical History - General Information source: Patient - Social History Smoking Status: Never Smoker Drug Abuse: None Lives with: Family Family History: Reviewed & Not Pertinent Renal/ Medical History: Denies: Hx Peritoneal Dialysis GI Medical History: Reports: Hx Gastroesophageal Reflux Disease Psychiatric Medical History: Reports: Hx Anxiety, Hx Attention Deficit Hy peractivity Disorder, Hx Borderline Personality Disorder, Hx Depression - Immunizations Hx Diphtheria, Pertussis, Tetanus Vaccination: Yes Review of Systems - Review of Systems Constitutional: See HPI EENT: No symptoms reported Cardiovascular: See HPI Respiratory: See HPI Gastrointestinal: No symptoms reported Genitourinary: No symptoms reported Female Genitourinary: No symptoms reported Musculoskeletal: No symptoms reported Skin: No symptoms reported Hematologic/Lymphatic: No symptoms reported Neurological/Psychological: See HPI Physical Exam - Vital signs Vitals: Temp Pulse Resp BP Pulse Ox 98.1 F 126 H 26 H 181/85 H 99 05/23/19 22:06 05/23/19 22:06 05/23/19 22:06 05/23/19 22:06 05/23/19 22:06 - Notes Notes: GENERAL: Alert, interacts well. She is slightly shaky. HEAD: Normocephalic, atraumatic. EYES: Pupils equal, round, slightly dilated, and reactive to light. Extraocular movements intact. ENT: Oral mucosa moist, tongue midline. Oropharynx unremarkable. Airway patent. Nares patent, no nasal septal hematoma, TM's intact. NECK: Full range of motion. Supple. Trachea midline. LUNGS: Clear to auscultation bilaterally, no wheezes, rales, or rhonchi. No respiratory distress. HEART: Regular rate and rhythm. No murmur ABDOMEN: Soft, non-tender. Non-distended. Bowel sounds present in all 4 quadrant s. GENITOURINARY: Deferred EXTREMITIES: Moves all 4 extremities spontaneously. No edema, normal radial and dorsalis pedis pulses bilaterally. No cyanosis. BACK: no cervical, thoracic, lumbar midline tenderness. No saddle anesthesia, normal distal neurovascular exam. Moves all extremities in full range of motion. NEUROLOGICAL: Alert and oriented x3. Normal speech. Cranial nerves II through XII grossly intact. PSYCH: Speaks anxiously but makes good eye contact and exhibits no abnormal behavior otherwise SKIN: Warm, dry, normal turgor. No rashes or lesions noted. Course - Re-evaluation Re-evalutation: Patient symptoms have resolved reportedly although she is still somewhat tremulous and has dilated pupils. She talks anxiously. She does describe what sounds like a panic attack. She declines a work-up here stating her symptoms have resolved and she has had the same symptoms many times in the past. Patient already has a neurology follow-up, she does have an MRI report with her that shows small lesions in the white matter of the brain, she is awaiting work-up for this. I did discuss options. She states sometimes the dizziness gets very bad and meclizine does not help, she was provided with Valium for these instances. She is not homicidal or suicidal. Patient does not exhibit concerning behavior here, she is actually quite calm, she is very appreciative of me listening to her descriptions of her symptoms. Patient stable for discharge at this time, discussed return precautions in detail, patient states understanding and agreement. Vital signs rechecked and are unremarkable. - Vital Signs Vital signs: Temp Pulse Resp BP Pulse Ox 98.1 F 70 26 H 126/75 H 99 05/24/19 02:20 05/24/19 02:20 05/23/19 22:06 05/24/19 02:20 05/24/19 02:20 Discharge - Discharge Clinical Impression: Dizziness, Panic attack Condition: Stable Disposition: HOME, SELF-CARE Additional Instructions: Your evaluation and symptoms are most consistent with a panic attack secondary to your chronic recurring dizziness. You have been provided with diazepam to take in the event of either the spinning sensation or panic attack. Follow-up with your primary care, follow-up with the neurologist referral that you obtained or the neurology referral listed below because of your MRI and ongoing symptoms. Return if you worsen including vomiting, difficulty breathing, passing out, or something is not right. [facility] [address] [facility] [id number] Prescriptions: Diazepam [Valium 5 mg Tablet] 1 - 2 tab PO TID PRN #15 tablet PRN Reason: Referrals: ORA BHANDARI FNP [NURSE PRACTITIONER] - Follow up as needed
[2019-05-24 02:21] VITALS: BP 126/75
== END 2019-05-24 02:30 | disposition home or self-care (01) ==
LOC: ER 21:26
DX: F41.0 Panic disorder [episodic paroxysmal anxiety] (principal); R42 Dizziness and giddiness; F41.9 Anxiety disorder, unspecified; Z79.899 Other long term (current) drug therapy
CPT/HCPCS: 93005; 93010; 99283

== ENCOUNTER → 2019-06-27 | Outpatient (CLI) | payer MEDICAID, MEDICARE ==
--- NOTE | 2019-06-27 13:45 | NEURO WORKBENCH EEG REPORT ---
EEG Report Patient: Letty Russo ID: [id number] Referring Doctor: Raza Rosario MD DOS: 06/27/2019 Medications: Clozapine History This is a 39 year old right handed woman with a history of anxiety, PTSD, headaches, Bipolar disorder, Borderline personality disorder, agoraphobia, hypoglycemia with abnormal findings on skull/head imaging and dizziness. The patient took clozapine before EEG study. This EEG was requested for dizziness. EEG Interpretation This EEG was recorded in the awake, drowsy, and sleep states. The awake EEG is characterized by an attenuated background without a noted posterior dominant rhythm. There was reactivity to eye opening/closing. The remainder of the background consisted of a mix of beta and alpha activity. Drowsiness is characterized by slowing of the background rhythms. Vertex waves and sleep spindles were seen in the midline head regions. Photic stimulation resulted in a very good driving response. Hyperventilation was limited from electrode artifact and short duration due to patient chest pain; there were no significant EEG changes noted. There were no epileptiform abnormalities. The EKG showed a regular rhythm. EEG Impression This EEG is within normal limits. INTERPRETING NEUROLOGIST: Debbie Cunningham MD, [facility] Board Certified in Neurology, with special qualification in Child Neurology, and in Clinical Neurophysiology [facility]
== END ==
LOC: NEURO 08:15
PROVIDERS: ATTEND Pediatrics
DX: R42 Dizziness and giddiness (principal); R93.0 Abnormal findings on diagnostic imaging of skull and head, not elsewhere classified; F41.9 Anxiety disorder, unspecified
CPT/HCPCS: 95819

== ENCOUNTER 2019-08-09 14:37 | Emergency (ER) | payer MEDICARE, MEDICAID ==
[2019-08-09] MEDS ORDERED: NORMAL SALINE 1000 ML 1,000 ML IV ONE (15:30)
--- NOTE | 2019-08-09 15:34 | ER Document Report ---
ED Medical Screen (RME) - General Chief Complaint: Lower Abdominal Pain Stated Complaint: APENDIX PAIN Time Seen by Provider: 08/09/19 15:24 Primary Care Provider: ANTON ZIMMERMAN MD [Primary Care Provider] - Follow up as needed Notes: Patient is a 39-year-old female presents emergency department with a chief complaint of right lower quadrant abdominal pain. Her pain started around 1130 last night. She states that it hurts to walk in bumps in the road makes the pain worse. She denies any nausea or vomiting. Her last menstrual cycle was July 26. She denies any vaginal discharge. She attempted to take Tums and baking soda, but did not have any relief of her symptoms. Her last bowel movement was this morning was normal. Patient also states that she has been working out. Exam: Very tender right lower quadrant. I offered the patient pain medication, but she says that she is sensitive and would much rather hold off. I have greeted and performed a rapid initial assessment of this patient. A comprehensive ED assessment and evaluation of the patient, analysis of test results and completion of medical decision making process will be conducted by an additional ED providers. TRAVEL OUTSIDE OF THE [place] IN LAST 30 DAYS: No - Related Data Allergies/Adverse Reactions: bupropion [From Wellbutrin] Allergy (Verified 02/13/19 13:46) Past Medical History - Social History Chew tobacco use (# tins/day): No Frequency of alcohol use: None Drug Abuse: None Family history: CAD - Paternal grandmother and maternal grandfather with heart attacks. Renal/ Medical History: Denies: Hx Peritoneal Dialysis GI Medical History: Reports: Hx Gastroesophageal Reflux Disease Psychiatric Medical History: Reports: Hx Anxiety, Hx Attention Deficit Hyperactivity Disorder, Hx Borderline Personality Disorder, Hx Depression - Immunizations Hx Diphtheria, Pertussis, Tetanus Vaccination: Yes Physical Exam - Vital signs Vitals: Temp Pulse Resp BP Pulse Ox 98.2 F 100 20 136/85 H 100 08/09/19 14:47 08/09/19 14:47 08/09/19 14:47 08/09/19 14:47 08/09/19 14:47 Course - Vital Signs Vital signs: Temp Pulse Resp BP Pulse Ox 98.2 F 100 20 136/85 H 100 08/09/19 14:47 08/09/19 14:47 08/09/19 14:47 08/09/19 14:47 08/09/19 14:47 Doctor's Discharge - Discharge Referrals: ANTON ZIMMERMAN MD [Primary Care Provider] - Follow up as needed
[2019-08-09 16:11] LABS: ABSOLUTE BASOPHILS # (AUTO) 0.1 10^3/uL (0.0-0.2); ABSOLUTE EOSINOPHILS # (AUTO) 0.1 10^3/uL (0.0-0.6); LYMPHOCYTES % (AUTO) 11.7 % (13-45); TOTAL CELLS COUNTED % (AUTO) 100 %
[2019-08-09 16:21] LABS: ABSOLUTE LYMPHOCYTES (AUTO) 1.8 10^3/uL (0.5-4.7); ABSOLUTE MONOCYTES (AUTO) 1.1 10^3/uL (0.1-1.4); BASOPHILS % (AUTO) 0.4 % (0-2); EOSINOPHILS % (AUTO) 0.5 % (0-6); HEMATOCRIT 42.1 % (36.0-47.0); HEMOGLOBIN 14.3 g/dL (12.0-15.5); MEAN CORPUSCULAR HEMOGLOBIN 29.8 pg (27.0-33.4); MEAN CORPUSCULAR HGB CONC 33.8 g/dL (32.0-36.0); MEAN CORPUSCULAR VOLUME 88 fl (80-97); MONOCYTES % (AUTO) 7.2 % (3-13); PLATELET COUNT 270 10^3/uL (150-450); RED BLOOD COUNT 4.78 10^6/uL (3.72-5.28); RED CELL DISTRIBUTION WIDTH 12.5 % (11.5-14.0); SEGMENTED NEUTROPHILS % (AUTO) 80.2 % (42-78); WHITE BLOOD COUNT 14.9 10^3/uL (4.0-10.5)
[2019-08-09 16:47] LABS: ALBUMIN 4.6 g/dL (3.5-5.0); ALKALINE PHOSPHATASE 84 U/L (38-126); ANION GAP 10 (5-19); ASPARTATE AMINO TRANSFERASE 16 U/L (14-36); BILIRUBIN,DIRECT 0.1 mg/dL (0.0-0.4); BILIRUBIN,TOTAL 0.4 mg/dL (0.2-1.3); BLOOD UREA NITROGEN 14 mg/dL (7-20); CALCIUM 9.9 mg/dL (8.4-10.2); CARBON DIOXIDE 24 mmol/L (22-30); CHLORIDE 104 mmol/L (98-107); GLUCOSE 99 mg/dL (75-110); POTASSIUM 4.2 mmol/L (3.6-5.0); TOTAL PROTEIN 7.6 g/dL (6.3-8.2)
[2019-08-09 17:25] LABS: APPEARANCE,URINE CLEAR; BILIRUBIN,URINE NEGATIVE (NEGATIVE); COLOR,URINE YELLOW; GLUCOSE, URINE NEGATIVE (NEGATIVE); KETONES,URINE 20 mg/dL (NEGATIVE); LEUKOCYTE ESTERASE,URINE NEGATIVE (NEGATIVE); NITRITE,URINE NEGATIVE (NEGATIVE); PROTEIN,URINE NEGATIVE (NEGATIVE); URINE SPECIFIC GRAVITY 1.023; UROBILINOGEN,URINE NEGATIVE mg/dL (<2.0)
--- NOTE | 2019-08-09 19:53 | RADIOLOGY REPORT (SQ) ---
EXAM DESCRIPTION: CT ABD/PELVIS WITH IV ONLY COMPLETED DATE/TIME: 08/09/2019 7:38 pm REASON FOR STUDY: RLQ abd pain COMPARISON: None. TECHNIQUE: CT scan of the abdomen and pelvis performed using helical scanning technique with dynamic intravenous contrast injection. No oral contrast. Images reviewed with lung, soft tissue, and bone windows. Reconstructed coronal and sagittal MPR images reviewed. Delayed images were not acquired. Al l images stored on PACS. All CT scanners at this facility use dose modulation, iterative reconstruction, and/or weight based d osing when appropriate to reduce radiation dose to as low as reasonably achievable (ALARA). [facility]: Dose Right [facility]: CareDose [facility]: Dose Right [facility]: Teradose 4D [facility]: [employer] CONTRAST TYPE AND DOSE: Dose and type of contrast not recorded here. Refer to microbiology technologist's not es. RENAL FUNCTION: None required. The patient is less than 50 years old. RADIATION DOSE: CT Rad equipment meets quality standard of care and radiation dose reduction techniq ues were employed. CTDIvol: 5.7 mGy. DLP: 288 mGy-cm.. LIMITATIONS: None. FINDINGS: LOWER CHEST: No significant findings. No nodules or infiltrates. LIVER: Normal size. No masses. No dilated ducts. SPLEEN: Normal size. No focal lesions. PANCREAS: No masses. No significant calcifications. No adjacent inflammation or peripancreatic fluid collections. Pancreatic duct not dilated. GALLBLADDER: No identified stones by CT criteria. No inflammatory changes to suggest cholecystitis. ADRENAL GLANDS: No significant masses or asymmetry. RIGHT KIDNEY AND URETER: No solid masses. No significant calcifications. No hydronephrosis or hyd roureter. LEFT KIDNEY AND URETER: No solid masses. No significant calcifications. No hydronephrosis or hydr oureter. AORTA AND VESSELS: No aneurysm. No dissection. Renal arteries, SMA, celiac without stenosis. RETROPERITONEUM: No retroperitoneal adenopathy, hemorrhage or masses. BOWEL AND PERITONEAL CAVITY: Sigmoid diverticulosis. No acute inflammation. APPENDIX: Normal. PELVIS: No mass. No free fluid. Normal bladder. ABDOMINAL WALL: No masses. No hernias. BONES: No significant or acute findings. OTHER: No other significant finding. IMPRESSION: No acute finding. The appendix is normal. There is diverticulosis coli. TECHNICAL DOCUMENTATION: JOB ID: [id number] Quality ID # [id number]: Final reports with documentation of one or more dose reduction techniques (e.g., Au tomated exposure control, adjustment of the mA and/or kV according to patient size, use of iterative reconstruction technique) 2010 [id number]- All Rights Reserved Reading location - IP/workstation name: [email or web address]
--- NOTE | 2019-08-09 20:22 | ER Document Report ---
ED GI/ - General Chief Complaint: Lower Abdominal Pain Stated Complaint: APENDIX PAIN Time Seen by Provider: 08/09/19 20:22 Primary Care Provider: ANTON ZIMMERMAN MD [ACTIVE STAFF] - Follow up as needed Mode of Arrival: Ambulatory Information source: Patient Notes: HISTORY OF PRESENT ILLNESS: Patient is a 39-year-old female with no significant past medical history who presents with right flank pain that began 1 day ago and now radiates to the right mid abdomen. Patient denies having similar symptoms in the past, denies any other symptom. Location: Right flank Onset: One day ago Alleviation: None Provocation: Movement Quality: Aching, throbbing Radiation: Right abdomen Severity: Mild to moderate Timing: Intermittent History of abdominal surgery: None Associated symptoms: Denies fevers or chills, nausea or vomiting, no vaginal bleeding or discharge, no diarrhea or constipation Last bowel movement: Today and normal Last menstrual period: "Last month" REVIEW OF SYSTEMS: CONSTITUTIONAL : Denies fever or chills, no sweats. Denies recent illness. EENT: Denies eye, ear, throat, or mouth pain or symptoms. Denies nasal or sinus congestion. CARDIOVASCULAR: Denies chest pain. Denies swelling of the legs. RESPIRATORY: Denies cough, cold, or chest congestion. Denies shortness of breath or difficulty breathing. Denies wheezing. GASTROINTESTINAL: Positive for abdominal pain. Denies nausea, vomiting, or diarrhea. Denies constipation. GENITOURINARY: Denies difficulty urinating, painful urination, burning, frequency, or blood in urine. FEMALE GENITOURINARY: Denies vaginal bleeding, abnormal or irregular periods. MUSCULOSKELETAL: Denies neck or back pain or joint pain or swelling. SKIN: Denies rash or skin lesions. HEMATOLOGIC : Denies easy bruising or bleeding. LYMPHATIC: Denies swollen, enlarged glands. NEUROLOGICAL: Denies altered mental status or loss of consciousness. Denies headache. Denies weakness or paralysis or loss of use of either side. Denies problems with gait or speech. Denies sensory or motor loss. PSYCHIATRIC: Denies anxiety or stress or depression. All other systems reviewed and negative. PHYSICAL EXAMINATION: GENERAL: Well-appearing, well-nourished and in no acute distress. HEAD: Atraumatic, normocephalic. No scalp deformity, depression, or crepitance. EYES: Pupils are 3 mm and equal/round/reactive to light, extraocular movements intact, sclera anicteric, conjunctiva are normal. ENT: Nares patent bilaterally, oropharynx. Moist mucous membranes. No tonsil hypertrophy. NECK: Normal range of motion, supple without lymphadenopathy. LUNGS: Breath sounds present, equal, and clear to auscultation bilaterally. No wheezes, rales, or rhonchi. HEART: Regular rate and rhythm without murmurs, rubs, or gallops. 2+ peripheral pulses. Normal capillary refill. ABDOMEN: Soft, mild tenderness in the right flank and mid abdomen, nondistended. Normoactive bowel sounds. No guarding, no rebound. No masses appreciated. BACK: Normal contour, no midline tenderness. Rectal exam deferred. GENITAL/PELVIC: Deferred. EXTREMITIES: Normal range of motion, no pitting or edema. No cyanosis. NEUROLOGICAL: No focal neurological deficits. Moves all extremities spontaneously and on command. PSYCH: Normal mood, normal affect. No suicidal thoughts/ideations. No homicidal thoughts/ideations. No hallucinations. SKIN: Warm, dry, normal turgor, no rashes or lesions noted. ASSESSMENT AND PLAN: This patient is a 39-year-old female who presents with right flank pain that could represent ureterolithiasis versus pyelonephritis versus UTI versus muscle strain. 1. Will obtain labs, urine, and CT scan of the abdomen/pelvis. 2. Will give IV fluids with Toradol and reassess. TRAVEL OUTSIDE OF THE [place] IN LAST 30 DAYS: No - HPI Patient complains to provider of: Abdominal pain Onset: Yesterday Timing/Duration: Sudden Quality of pain: Cramping, Sharp, Stabbing Severity at maximum: Severe Severity in ED: Moderate Pain Level: 3 Location: RLQ Vaginal bleeding (Compared to normal period): None Sexual history: Inactive Associated symptoms: None Exacerbated by: Movement Relieved by: Denies Similar symptoms previously: No Recently seen / treated by doctor: No - Related Data Allergies/Adverse Reactions: bupropion [From Wellbutrin] Allergy (Verified 02/13/19 13:46) Past Medical History - General Information source: Patient - Social History Smoking Status: Former Smoker Chew tobacco use (# tins/day): No Frequency of alcohol use: None Drug Abuse: None Lives with: Family Family History: Reviewed & Not Pertinent Patient has suicidal ideation: No Patient has homicidal ideation: No - Past Medical History Cardiac Medical History: Reports: None Pulmonary Medical History: Reports: None EENT Medical History: Reports: None Neurological Medical History: Reports: None Endocrine Medical History: Reports: None Renal/ Medical History: Reports: None. Denies: Hx Peritoneal Dialysis Malignancy Medical History: Reports: None GI Medical History: Reports: Hx Gastroesophageal Reflux Disease Musculoskeletal Medical History: Reports None Skin Medical History: Reports None Psychiatric Medical History: Reports: Hx Anxiety, Hx Attention Deficit Hyperactivity Disorder, Hx Borderline Personality Disorder, Hx Depression Traumatic Medical History: Reports: None Infectious Medical History: Reports: None Surgical Hx: Negative Past Surgical History: Reports: None - Immunizations Hx Diphtheria, Pertussis, Tetanus Vaccination: Yes Review of Systems - Review of Systems Constitutional: No symptoms reported EENT: No symptoms reported Cardiovascular: No symptoms reported Respiratory: No symptoms reported Gastrointestinal: See HPI, Abdominal pain Genitourinary: No symptoms reported Female Genitourinary: No symptoms reported Musculoskeletal: No symptoms reported Skin: No symptoms reported Hematologic/Lymphatic: No symptoms reported Neurological/Psychological: No symptoms reported -: Yes All other systems reviewed and negative Physical Exam - Vital signs Vitals: Temp Pulse Resp BP Pulse Ox 98.2 F 100 20 136/85 H 100 08/09/19 14:47 08/09/19 14:47 08/09/19 14:47 08/09/19 14:47 08/09/19 14:47 Interpretation: Normal Course - Re-evaluation Re-evalutation: 08/10/19 00:07 CT scan is negative other than diverticulosis, ultrasound actually reveals a fecalith and a cecal diverticulum that is the most likely cause of the patient's symptoms. Will discharge the patient home with strict return precautions and follow-up with primary care. All results were explained to and discussed with the patient, and all questions addressed and answered. The patient voices both understanding and agreeing with the plan. - Vital Signs Vital signs: Temp Pulse Resp BP Pulse Ox 98.4 F 87 16 105/77 99 08/10/19 00:21 08/10/19 00:21 08/10/19 00:21 08/10/19 00:21 08/10/19 00:21 - Laboratory Result Diagrams: 08/09/19 15:55 08/09/19 15:55 Laboratory results interpreted by me: 08/09/19 08/09/19 15:55 16:50 WBC 14.9 H Lymph % (Auto) 11.7 L Absolute Neuts (auto) 12.0 H Seg Neutrophils % 80.2 H Urine Ketones 20 H - Diagnostic Test Radiology reviewed: Image reviewed, Reports reviewed Discharge - Discharge Clinical Impression: Diverticulitis Condition: Good Disposition: HOME, SELF-CARE Instructions: Diverticulitis ([facility]) Additional Instructions: You have been evaluated in the Emergency Department for abdominal pain. While here, you had an ultrasound and a CAT scan and it is now safe to be discharged home. Please follow-up with your primary physician as instructed in one week to be rechecked. Return to the Emergency Department if you experience worsening pain, high fevers, bloody stools, or any other concerning symptoms. Prescriptions: Amox Tr/Potassium Clavulanate [Augmentin 875-125 mg Tablet] 1 tab PO BID #20 tablet Referrals: ANTON ZIMMERMAN MD [ACTIVE STAFF] - Follow up as needed Print Language: Turkish
[2019-08-09] MEDS ORDERED: IBUPROFEN 800 MG TABLET PO ONE (22:35)
--- NOTE | 2019-08-09 23:00 | RADIOLOGY REPORT (SQ) ---
EXAM DESCRIPTION: US PELVIS COMPLETED DATE/TME: 08/09/2019 21:11 CLINICAL HISTORY: 39 years, Female, Pelvis pain, elevated white blood cell count COMPARISON: CT abdomen and pelvis 08/09/2019 at 7:33 PM TECHNIQUE: LIMITATIONS: None. FINDINGS: There is a 6 mm calcification in the right lower quadrant, corresponding to a calcification present on the prior CT scan. This calcification may represent a fecalith within a cecal diverticulum. I believe there are inflammatory changes adjacent to this calcification, on the CT scan. Findings are suspicious for cecal diverticulitis. The patient had extreme rebound tenderness during scanning over the calcification. There is no evidence of fluid collection. The uterus is unremarkable. IMPRESSION: Findings are suspicious for cecal diverticulitis, based on the CT scan findings. copyright 2010 [email or web address]- All Rights Reserved
[2019-08-10 00:24] VITALS: BP 105/77
== END 2019-08-10 00:21 | disposition home or self-care (01) ==
LOC: ER 14:37
DX: K57.92 Diverticulitis of intestine, part unspecified, without perforation or abscess without bleeding (principal); R10.30 Lower abdominal pain, unspecified
CPT/HCPCS: 99284; 96360; 96361; 36415; 82962; 83690; 84703; 85025; 80053; 81001; 76856; 93976; 74177; A9270; J7030

== ENCOUNTER 2019-12-07 01:29 | Emergency (ER) | payer MEDICARE, MEDICAID ==
[2019-12-07 01:35] VITALS: BP 119/75
== END 2019-12-07 03:58 | disposition left against medical advice (07) ==
LOC: ER 01:29
DX: Z53.21 Procedure and treatment not carried out due to patient leaving prior to being seen by health care provider (principal)

== ENCOUNTER 2020-01-22 13:22 | Emergency (ER) | payer MEDICARE, MEDICAID ==
[2020-01-22] MEDS ORDERED: ASPIRIN 81 MG TABLET, CHEWABLE PO ONE (13:56)
--- NOTE | 2020-01-22 13:58 | ER Document Report ---
ED Medical Screen (RME) - General Chief Complaint: Chest Pain Stated Complaint: CHEST PAIN Time Seen by Provider: 01/22/20 13:52 Primary Care Provider: LISANDRA MANUEL MD [Primary Care Provider] - Follow up as needed Mode of Arrival: Ambulatory Information source: Patient Notes: Patient presents complaining of midsternal chest pain and left sided chest pain that started around 1130. Patient denies any cough cold symptoms or difficulty breathing. Patient denies any nausea or vomiting. Patient extremely anxious in triage and tachypneic. I have greeted and performed a rapid initial assessment of this patient. A comprehensive ED assessment and evaluation of the patient, analysis of test results and completion of the medical decision making process will be conducted by additional ED providers. TRAVEL OUTSIDE OF THE [place] IN LAST 30 DAYS: No - Related Data Allergies/Adverse Reactions: bupropion [From Wellbutrin] Allergy (Verified 01/22/20 13:52) erythromycin base Allergy (Verified 01/22/20 13:52) Past Medical History - Social History Family history: CAD - Paternal grandmother and maternal grandfather with heart attacks. Renal/ Medical History: Denies: Hx Peritoneal Dialysis GI Medical History: Reports: Hx Gastroesophageal Reflux Disease Psychiatric Medical History: Reports: Hx Anxiety, Hx Attention Deficit Hyperactivity Disorder, Hx Borderline Personality Disorder, Hx Depression - Immunizations Hx Diphtheria, Pertussis, Tetanus Vaccination: Yes Physical Exam - Vital signs Vitals: Temp Pulse Resp BP Pulse Ox 98.3 F 89 22 H 141/79 H 100 01/22/20 13:36 01/22/20 13:36 01/22/20 13:36 01/22/20 13:36 01/22/20 13:36 - General General appearance: Alert, Anxious Notes: Tachypneic - Cardiovascular Rhythm: Regular Heart sounds: S1 appreciated, S2 appreciated Course - Vital Signs Vital signs: Temp Pulse Resp BP Pulse Ox 98.3 F 89 22 H 141/79 H 100 01/22/20 13:36 01/22/20 13:36 01/22/20 13:36 01/22/20 13:36 01/22/20 13:36 Doctor's Discharge - Discharge Referrals: LISANDRA MANUEL MD [Primary Care Provider] - Follow up as needed
[2020-01-22 14:27] LABS: ABSOLUTE EOSINOPHILS # (AUTO) 0.1 10^3/uL (0.0-0.6); ABSOLUTE MONOCYTES (AUTO) 0.5 10^3/uL (0.1-1.4); ABSOLUTE NEUT (AUTO) 6.6 10^3/uL (1.7-8.2); BASOPHILS % (AUTO) 0.4 % (0-2); EOSINOPHILS % (AUTO) 0.8 % (0-6); HEMATOCRIT 41.8 % (36.0-47.0); HEMOGLOBIN 14.5 g/dL (12.0-15.5); LYMPHOCYTES % (AUTO) 22.1 % (13-45); MEAN CORPUSCULAR HEMOGLOBIN 31.2 pg (27.0-33.4); MEAN CORPUSCULAR HGB CONC 34.6 g/dL (32.0-36.0); MEAN CORPUSCULAR VOLUME 90 fl (80-97); MONOCYTES % (AUTO) 5.1 % (3-13); PLATELET COUNT 270 10^3/uL (150-450); RED BLOOD COUNT 4.64 10^6/uL (3.72-5.28); RED CELL DISTRIBUTION WIDTH 12.8 % (11.5-14.0); SEGMENTED NEUTROPHILS % (AUTO) 71.6 % (42-78); TOTAL CELLS COUNTED % (AUTO) 100 %; WHITE BLOOD COUNT 9.2 10^3/uL (4.0-10.5)
[2020-01-22 14:40] LABS: ALBUMIN 4.8 g/dL (3.5-5.0); ALKALINE PHOSPHATASE 84 U/L (38-126); ANION GAP 9 (5-19); ASPARTATE AMINO TRANSFERASE 18 U/L (14-36); BILIRUBIN,TOTAL 0.3 mg/dL (0.2-1.3); BLOOD UREA NITROGEN 13 mg/dL (7-20); CALCIUM 9.7 mg/dL (8.4-10.2); CARBON DIOXIDE 28 mmol/L (22-30); CHLORIDE 102 mmol/L (98-107); GLUCOSE 87 mg/dL (75-110); TOTAL PROTEIN 7.8 g/dL (6.3-8.2)
--- NOTE | 2020-01-22 14:48 | RADIOLOGY REPORT (SQ) ---
EXAM DESCRIPTION: CHEST 2 VIEWS COMPLETED DATE/TIME: 01/22/2020 2:41 pm REASON FOR STUDY: cp COMPARISON: None. EXAM PARAMETERS: NUMBER OF VIEWS: two views TECHNIQUE: Digital Frontal and Lateral radiographic views of the chest acquired. RADIATION DOSE: NA LIMITATIONS: none FINDINGS: LUNGS AND PLEURA: No opacities, masses or pneumothorax. No pleural effusion. MEDIASTINUM AND HILAR STRUCTURES: No masses or contour abnormalities. HEART AND VASCULAR STRUCTURES: Heart normal size. No evidence for failure. BONES: No acute findings. HARDWARE: None in the chest. OTHER: No other significant finding. IMPRESSION: NO ACUTE RADIOGRAPHIC FINDING IN THE CHEST. TECHNICAL DOCUMENTATION: JOB ID: [id number] 2010 [employer]- All Rights Reserved Reading location - IP/workstation name: [email or web address]
--- NOTE | 2020-01-22 15:19 | ER Document Report ---
Entered by MABEL LOZA SCRIBE 01/22/20 1423 Acting as scribe for:JEFF HERRERA MD ED General - General Chief Complaint: Chest Pain Stated Complaint: CHEST PAIN Time Seen by Provider: 01/22/20 13:52 Primary Care Provider: LISANDRA MANUEL MD [Primary Care Provider] - Follow up as needed Mode of Arrival: Ambulatory Information source: Patient Notes: This 40-year-old female patient presents to the emergency department today with complaints of reproducible chest wall pain for the last x5 days. Patient states that she first noticed these symptoms x5 days ago and they have been intermittent since onset. Patient went to an urgent care prior to arrival here and was sent here. Patient states she had a stress test over 10 years ago which was unremarkable. Patient denies any change in her pain with exertion. Patient states she has tried antacids at home with no relief. Patient states she has a mild cough which she contributes to allergies. Patient denies any shortness of breath, nausea, or calf pain/swelling. TRAVEL OUTSIDE OF THE [place] IN LAST 30 DAYS: No - Related Data Allergies/Adverse Reactions: bupropion [From Wellbutrin] Allergy (Verified 01/22/20 13:52) erythromycin base Allergy (Verified 01/22/20 13:52) Past Medical History - General Information source: Patient - Social History Smoking Status: Never Smoker Cigarette use (# per day): No Chew tobacco use (# tins/day): No Frequency of alcohol use: None Drug Abuse: None Lives with: Family Family History: Reviewed & Not Pertinent Patient has suicidal ideation: No Patient has homicidal ideation: No GI Medical History: Reports: Hx Gastroesophageal Reflux Disease Psychiatric Medical History: Reports: Hx Anxiety, Hx Attention Deficit Hyperactivity Disorder, Hx Borderline Personality Disorder, Hx Depression - Immunizations Hx Diphtheria, Pertussis, Tetanus Vaccination: Yes Review of Systems - Review of Systems Constitutional: No symptoms reported EENT: No symptoms reported Cardiovascular: See HPI, Chest pain Respiratory: See HPI, Cough. denies: Short of breath Gastrointestinal: denies: Nausea Genitourinary: No symptoms reported Female Genitourinary: No symptoms reported Musculoskeletal: No symptoms reported Skin: No symptoms reported Hematologic/Lymphatic: No symptoms reported Neurological/Psychological: No symptoms reported -: Yes All other systems reviewed and negative Physical Exam - Vital signs Vitals: Temp Pulse Resp BP Pulse Ox 98.3 F 89 22 H 141/79 H 100 01/22/20 13:36 01/22/20 13:36 01/22/20 13:36 01/22/20 13:36 01/22/20 13:36 - Notes Notes: Physical Exam: General: Alert, appears well. HEENT: Normocephalic. Atraumatic. PERRL. Extraocular movements intact. No posterior oropharynx erythema or exudate, airway is patent. TMs are clear and non-bulging bilaterally. Neck: Supple. Non-tender. Respiratory: No respiratory distress. Clear and equal breath sounds bilaterally. Reproducible chest pain, anterior chest wall tenderness with palpation. Cardiovascular: Regular rate and rhythm. Abdominal: Normal Inspection. Non-tender. No distension. Normal Bowel Sounds. Back: No gross abnormalities. Extremities: Moves all four extremities. Upper extremities: Normal inspection. Normal ROM. Lower extremities: Normal inspection. No edema. Normal ROM. Neurological: Normal cognition. AAOx4. Normal speech. Psychological: Normal affect. Normal Mood. Skin: Warm. Dry. Normal color. Course - Re-evaluation Re-evalutation: 01/22/20 16:09 Patient appears anxious. Explained the patient her initial troponin cardiac isoenzyme is normal, her EKG is normal not showing any signs of a cardiac infarct. Chest x-ray is clear with no acute process patient is hemodynamically stable with normal vital signs. Patient still reports that she has some burning in her chest in the midline. Despite the chest wall pain that is noted on the left uppersternal border over the costochondral junction 01/22/20 16:12 Patient is at this time awaiting for further evaluation and time for a second troponin to be collected to determine with greater confidence that there is no cardiac event going on at this time patient cardiac score is close to 0. - Vital Signs Vital signs: Temp Pulse Resp BP Pulse Ox 98.3 F 89 13 115/70 97 01/22/20 13:36 01/22/20 13:36 01/22/20 15:01 01/22/20 15:01 01/22/20 15:01 - Laboratory Result Diagrams: 01/22/20 14:03 01/22/20 14:03 Laboratory results interpreted by me: Laboratory laboratory within normal limits. - Diagnostic Test Radiology reviewed: Image reviewed, Reports reviewed Radiology results interpreted by me: 01/22/20 16:11 Chest x-ray no acute process - EKG Interpretation by Me Additional EKG results interpreted by me: 01/22/20 16:12 12-lead EKG done at 1330 shows normal sinus rhythm rate of [address]-T wave changes. Discharge - Discharge Clinical Impression: Atypical chest pain, Anxiety Condition: Stable Disposition: HOME, SELF-CARE Instructions: Chest Wall Pain ([facility]), Antacid Therapy ([facility]), Prilosec (Acid Pump Inhibitor) ([facility]) Additional Instructions: Chest Wall Pain Your chest pain has been diagnosed as coming from the chest wall. This is often caused by straining the muscles or joints in the chest during physical activity, direct trauma, coughing, or vigorous vomiting. Persons with arthritis are especially prone to this type of pain, due to inflammation of the cartilage joints near the breast bone. Occasionally, no cause can be found. Rest from strenuous physical activity. This kind of chest pain is usually made worse by movement of the chest. Depending on the symptoms, we may prescribe medicine for pain, muscle relaxation, and antiinflammatory effects. If the pain is new, and seems to be due to muscle strain, cold packs can hel p. Otherwise, apply gentle warmth to the painful area for 15 minutes every hour or two. You should contact the doctor immediately if things change. Further evaluation is needed if you develop a fever or cough, if the nature of the pain changes, or if you become short of breath. Prescriptions: Omeprazole Magnesium [Prilosec Otc] 20 mg PO DAILY 30 Days #30 tablet.dr Referrals: LISANDRA MANUEL MD [Primary Care Provider] - Follow up as needed I personally performed the services described in the documentation, reviewed and edited the documentation which was dictated to the scribe in my presence, and it accurately records my words and actions.
[2020-01-22] MEDS ORDERED: MAG HYDROX/AL HYDROX/SIMETH SUSP 30 ML UDCUP PO ONE (15:28)
[2020-01-22] MEDS ORDERED: LIDOCAINE 2% VISCOUS SOLN 15 ML UDCUP PO ONE (15:28)
[2020-01-22 17:50] VITALS: BP 132/89
--- NOTE | 2020-01-23 07:44 | EKG REPORT ---
SEVERITY:- NORMAL ECG - SINUS RHYTHM : Confirmed by: Collin Riley MD 23-Jan-2020 07:44:37
== END 2020-01-22 17:44 | disposition home or self-care (01) ==
LOC: ER 13:22
DX: R07.89 Other chest pain (principal); F41.9 Anxiety disorder, unspecified; Z88.3 Allergy status to other anti-infective agents
CPT/HCPCS: 93005; 99285; 36415; 83690; 83735; 85025; 80053; 84484; 71046; 93010; A9270 ×2